=== PATIENT | male | born 1955 | race Caucasian/White ===

== ENCOUNTER 2023-09-04 17:28 | Emergency (ER) | payer OTHER ==
[2023-09-04 17:37] VITALS: BP 134/74; PULSE 72; RESP 18; TEMP 97.8; BMI 24.6
[2023-09-04 19:19] LABS: BASO % 0.9 % (0-2.0); EOS % 4.8 % (0-4.5); HEMATOCRIT 38.5 % (35.4-49); HEMOGLOBIN 13.7 GM/dL (11.7-16.9); LYMPH % 22.3 % (8-40); MCH 33.2 pg (25.7-33.7); MCHC 35.5 g/dl (32.0-35.9); MEAN CELL VOLUME 93.4 fl (80-96); MEAN PLT VOLUME 8.1 fl (7.5-11.1); MONO % 12.5 % (3.8-10.2); NEUT % 59.5 % (42.8-82.8); PLATELET COUNT 199 10^3/uL (134-434); RBC 4.13 M/mm3 (4.00-5.60); RDW 13.3 % (11.9-15.9); WHITE BLOOD COUNT 4.1 K/mm3 (4.0-10.0)
[2023-09-04 19:25] LABS: INR 1.17 (0.83-1.09); PROTHROMBIN TIME (PATIENT) 13.5 SEC (9.7-13.0)
[2023-09-04 19:27] LABS: ACTIVATED PTT 27.4 SECONDS (25.2-36.5)
[2023-09-04 19:46] LABS: BLOOD UREA NITROGEN 14.1 mg/dL (7-18); CALCIUM 8.8 mg/dL (8.5-10.1)
[2023-09-04 19:47] LABS: ALBUMIN 3.4 g/dl (3.4-5.0)
[2023-09-04 19:50] LABS: CREATININE 0.8 mg/dL (0.55-1.3)
[2023-09-04 19:51] LABS: BILIRUBIN,TOTAL 0.6 mg/dL (0.2-1); TOT PROT 6.5 g/dl (6.4-8.2)
[2023-09-04] MEDS ORDERED: POTASSIUM CHLORIDE TABS 20 MEQ TABLET.ER (FP) PO ONE (20:55)
[2023-09-04] MEDS: POTASSIUM CHLORIDE ORAL LIQUID 20 MEQ/15 ML PO ONE (21:31)
== END 2023-09-05 00:31 | disposition left against medical advice (07) ==
LOC: JER 17:28
DX: K62.5 Hemorrhage of anus and rectum (principal); X50.0XXA Overexertion from strenuous movement or load, initial encounter
CPT/HCPCS: 36415; 74177-TC; 80053; 82272; 85025; 85610; 85730; 86850; 86900; 86901; 93005; 93010; 99285-25; Q9967